=== PATIENT | male | born 1970 | race African-American/Black ===

== ENCOUNTER 2016-08-16 01:04 | Emergency (ER) | payer MEDICAID, OTHER ==
[~2016-08-16] VITALS: Ht 175.3 cm; Wt 67.0 kg
[~2016-08-16 01:04] MED LIST: ALD50 PO; ASPI-1159 PO; COR3 PO; ENAL2.5T PO; FURO-151 PO; HYDR-523 PO; LISI-604 PO; WARF5TAB73 PO
[2016-08-16] MEDS ORDERED: LIDOCAINE HCL/EPINEPHRINE 1%-EPI 1:100,000 20 ML VIAL INFIL ONE (01:45)
[2016-08-16] MEDS ORDERED: BACITRACIN ZINC OINT UDPKT TOP ONE (01:45)
[2016-08-16] MEDS ORDERED: TETANUS, DIPHTHERIA, PERTUSSIS VAC/PF 0.5ML (>7YR OLD) IM ONE (01:45)
[2016-08-16] MEDS ORDERED: HYDROCODONE/ACETAMINOPHEN 10/325MG TABLET PO ONE (02:00)
[2016-08-16] MEDS ORDERED: ONDANSETRON 4MG ODT PO ONE (07:15)
[2016-08-16 07:32] VITALS: BP 110/63
== END 2016-08-16 07:37 | disposition home or self-care (01) ==
LOC: ER 01:04
DX: S00.01XA Abrasion of scalp, initial encounter (principal); S00.83XA Contusion of other part of head, initial encounter; I11.0 Hypertensive heart disease with heart failure; I25.2 Old myocardial infarction; Z79.01 Long term (current) use of anticoagulants; Z91.041 Radiographic dye allergy status; Z95.810 Presence of automatic (implantable) cardiac defibrillator; Y00.XXXA Assault by blunt object, initial encounter; Y04.0XXA Assault by unarmed brawl or fight, initial encounter; Y93.89 Activity, other specified; Y92.488 Other paved roadways as the place of occurrence of the external cause
CPT/HCPCS: 12011; 70450; 70486; 72040; 99284; J3490; Q0162; Z7610

== ENCOUNTER 2016-08-23 08:38 | Emergency (ER) | payer OTHER ==
[~2016-08-23] VITALS: Ht 172.7 cm; Wt 64.0 kg
[2016-08-23] MEDS ORDERED: HYDROCODONE/ACETAMINOPHEN 5/325MG TABLET PO STA (09:05)
[2016-08-23 09:23] LABS: BASOPHILS % 0.7 % (0.0-2.0); EOSINOPHILS % 0.2 % (0.0-5.0); HEMATOCRIT. 32.5 % (42.0-52.0); HEMOGLOBIN. 11.1 g/dL (14.0-18.0); LYMPHOCYTES % 8.9 % (20.0-50.0); MEAN CORPUSCULAR HEMOGLOBIN 34.3 pg (28.0-32.0); MEAN CORPUSCULAR VOLUME 100.1 fL (80.0-94.0); MEAN PLATELET VOLUME 8.1 fl (7.4-10.4); MONOCYTES % 12.2 % (2.0-8.0); PLATELET 155 x1000/uL (130-400); RED BLOOD CELL COUNT 3.25 mill/uL (4.7-6.1)
[2016-08-23 09:36] LABS: CARBON DIOXIDE 28 mEq/L (21-32); CHLORIDE 96 mEq/L (98-107); ETHANOL BLOOD < 10 mg/dL
[2016-08-23] MEDS ORDERED: SODIUM CHLORIDE 0.9% 1,000 ML IV ONE (10:00)
[2016-08-23 10:09] LABS: CREATINE KINASE 416 IU/L (39-308)
[2016-08-23 10:39] VITALS: BP 134/90
== END 2016-08-23 11:33 | disposition home or self-care (01) ==
LOC: ER 09:14
DX: S09.90XA Unspecified injury of head, initial encounter (principal); S20.212A Contusion of left front wall of thorax, initial encounter; S70.12XA Contusion of left thigh, initial encounter; I51.9 Heart disease, unspecified; F17.210 Nicotine dependence, cigarettes, uncomplicated; F10.10 Alcohol abuse, uncomplicated; Y90.0 Blood alcohol level of less than 20 mg/100 ml; E87.1 Hypo-osmolality and hyponatremia; E80.6 Other disorders of bilirubin metabolism; D64.9 Anemia, unspecified; Z95.0 Presence of cardiac pacemaker; Z79.01 Long term (current) use of anticoagulants; Z87.828 Personal history of other (healed) physical injury and trauma; Z91.041 Radiographic dye allergy status; W01.0XXA Fall on same level from slipping, tripping and stumbling without subsequent striking against object, initial encounter; Y93.89 Activity, other specified; Y92.018 Other place in single-family (private) house as the place of occurrence of the external cause
CPT/HCPCS: 36415; 70450; 71010; 73552; 80053; 82550; 85025; 93005; 96360; 99285; G0482; J7030; Z7610

== ENCOUNTER 2016-08-23 12:30 | Emergency (ER) | payer OTHER ==
[~2016-08-23] VITALS: Ht 172.7 cm; Wt 80.0 kg
[2016-08-23] MEDS ORDERED: SODIUM CHLORIDE 0.9% 1,000 ML IV ONE (12:43)
[2016-08-23] MEDS ORDERED: KETOROLAC 30MG/ML VIAL IV STA (12:43)
[2016-08-23 13:09] LABS: BASOPHILS % 0.5 % (0.0-2.0); EOSINOPHILS % 0.1 % (0.0-5.0); HEMATOCRIT. 31.7 % (42.0-52.0); HEMOGLOBIN. 10.9 g/dL (14.0-18.0); LYMPHOCYTES % 10.2 % (20.0-50.0); MEAN CORPUSCULAR HEMOGLOBIN 34.4 pg (28.0-32.0); MEAN CORPUSCULAR VOLUME 100.1 fL (80.0-94.0); MEAN PLATELET VOLUME 8.3 fl (7.4-10.4); MONOCYTES % 12.6 % (2.0-8.0); NEUTROPHILS % 76.6 % (40.0-76.0); PLATELET 148 x1000/uL (130-400); RED BLOOD CELL COUNT 3.17 mill/uL (4.7-6.1); RED CELL DISTRIBUTION WIDTH 12.3 % (11.6-14.6)
[2016-08-23 13:19] LABS: CARBON DIOXIDE 29 mEq/L (21-32); CHLORIDE 98 mEq/L (98-107)
[2016-08-23 13:22] LABS: INR 3.7; PROTHROMBIN TIME 38.9 sec
[2016-08-23 13:26] LABS: TROPONIN I < 0.02 ng/mL (0.00-0.04)
[2016-08-23 17:16] VITALS: BP 133/84
== END 2016-08-23 17:19 | disposition home or self-care (01) ==
LOC: ER 12:37 → CANBEDREQ 18:09
DX: R07.89 Other chest pain (principal); J44.9 Chronic obstructive pulmonary disease, unspecified; I51.9 Heart disease, unspecified; Z79.01 Long term (current) use of anticoagulants; Z79.82 Long term (current) use of aspirin; Z95.2 Presence of prosthetic heart valve; Z91.041 Radiographic dye allergy status; Z95.0 Presence of cardiac pacemaker
CPT/HCPCS: 36415; 71010; 80053; 83880; 84484; 85025; 85610; 93005; 96361; 96374; 99285; J1885; J7030

== ENCOUNTER 2016-09-01 23:18 | Observation (INO) | payer OTHER ==
[~2016-09-01] VITALS: Ht 177.8 cm; Wt 59.0 kg
[2016-09-02] MEDS ORDERED: DEXAMETHASONE 10 MG/ML VIAL IV ONE
[2016-09-02] MEDS ORDERED: METHYLPREDNISOLONE SOD SUCC 125 MG/2 ML VIAL IV ONE
[2016-09-02] MEDS ORDERED: FAMOTIDINE 20MG/2ML VIAL IV ONE
[2016-09-02] MEDS ORDERED: DIPHENHYDRAMINE 50MG/ML VIAL IV ONE
[2016-09-02 00:27] LABS: INR 1.2; PROTHROMBIN TIME 12.1 sec
[2016-09-02 00:31] LABS: BASOPHILS % 0.6 % (0.0-2.0); EOSINOPHILS % 0.6 % (0.0-5.0); HEMATOCRIT. 34.5 % (42.0-52.0); HEMOGLOBIN. 11.7 g/dL (14.0-18.0); LYMPHOCYTES % 18.5 % (20.0-50.0); MEAN CORPUSCULAR HEMOGLOBIN 34.8 pg (28.0-32.0); MEAN CORPUSCULAR VOLUME 102.9 fL (80.0-94.0); MEAN PLATELET VOLUME 7.6 fl (7.4-10.4); MONOCYTES % 12.9 % (2.0-8.0); NEUTROPHILS % 67.4 % (40.0-76.0); PLATELET 293 x1000/uL (130-400); RED BLOOD CELL COUNT 3.35 mill/uL (4.7-6.1); RED CELL DISTRIBUTION WIDTH 13.9 % (11.6-14.6)
[2016-09-02 01:14] LABS: CARBON DIOXIDE 24 mEq/L (21-32); CHLORIDE 87 mEq/L (98-107)
[2016-09-02] MEDS ORDERED: LEVO25TA7 PO (08:57)
[2016-09-02] MEDS ORDERED: BANOPHEN PO (09:02)
[2016-09-02] MEDS ORDERED: OCD MT (09:02)
[2016-09-02] MEDS ORDERED: ASPIRIN 81MG EC TABLET PO SCH (09:30)
[2016-09-02] MEDS ORDERED: LEVOTHYROXINE SODIUM 25MCG TABLET PO SCH (09:30)
[2016-09-02] MEDS ORDERED: SPIRONOLACTONE 50MG TABLET PO SCH (09:30)
[2016-09-02] MEDS ORDERED: DIPHENHYDRAMINE 25MG CAPSULE PO SCH (09:45)
[2016-09-02] MEDS ORDERED: HYDROCODONE/ACETAMINOPHEN 5/325MG TABLET PO PRN (09:45)
[2016-09-02] MEDS ORDERED: WARFARIN SODIUM 5MG TABLET PO SCH (10:00)
[2016-09-02 16:04] VITALS: BP 124/81
[2016-09-02] MEDS ORDERED: PNEUMOCOCCAL 23-VAL P-SAC VAC 0.5 ML IM ONE (18:00)
[2016-09-03] MEDS ORDERED: WARFARIN SODIUM 5MG TABLET PO SCH (18:00)
== END 2016-09-02 16:30 | disposition home or self-care (01) ==
LOC: ER 23:18 → 6WST 09-02 05:18 → INTOOBSV 09-02 05:18 → ENRESERV 09-02 07:01
PROVIDERS: ADMIT Internal Medicine; ATTEND Internal Medicine
DX: T78.3XXA Angioneurotic edema, initial encounter (principal); I10 Essential (primary) hypertension; Z95.2 Presence of prosthetic heart valve; I42.9 Cardiomyopathy, unspecified; T78.40XA Allergy, unspecified, initial encounter; Z79.01 Long term (current) use of anticoagulants; Z95.0 Presence of cardiac pacemaker
CPT/HCPCS: 36415; 80053; 85025; 85610; 93005; 96374; 96375; 99291; G0378; J1100; J1200; J2930; J3490; Q0163